=== PATIENT | female | born 1955 | race Caucasian/White ===

== ENCOUNTER → 2017-02-20 | Outpatient (CLI) | payer OTHER ==
--- NOTE | 2017-02-20 15:09 | REP ---
TRIPLE PHASE BONE SCAN KNEES: Following the intravenous administration of 21.8 mCi of technetium 99m MDP, the patient's knees are imaged in the flow phase in the anterior and posterior projections. There is symmetrical blood flow. Immediate blood pool and three hour delayed images are performed of the knees, in the anterior, posterior and both lateral projections. Photopenic area in the left knee joint is compatible with metallic prosthesis. There is no abnormal blood pooling or delayed activity on the left adjacent to the prosthesis. There is increased blood pooling and delayed activity in the right medial femoral condyle and tibial plateau compatible with arthritic change at that location. IMPRESSION: No compelling scintigraphic evidence of loosening or infection left knee prosthesis. Moderate arthritic uptake medial right knee joint. Signed by Bulmaro Mcdonald MD 02/20/2017 03:51 P
== END ==
LOC: M RAD 09:32
PROVIDERS: ATTEND Orthopaedic Surgery
DX: M17.12 Unilateral primary osteoarthritis, left knee (principal)
CPT/HCPCS: 78315; A9503

== ENCOUNTER 2017-06-04 07:30 | Day surgery (SDC) | payer OTHER ==
[~2017-06-04 07:30] MED LIST: LIDOCAINE 2% MDV 20 ML VIAL As Ordered; PROPOFOL 200 MG/20 ML VIAL As Ordered
[2017-06-04] MEDS: NS 1,000 ML IV (07:45)
[2017-06-04] MEDS ORDERED: CEFAZOLIN 100MG/ML SYRINGE 1GM(J0690 PER 500MG) As Ordered (07:57)
[2017-06-04] MEDS: CEFAZOLIN SOD 1 GM in APPROPRIATE DILUENT 1 EA IV (08:00)
== END 2017-06-04 09:25 | disposition home or self-care (01) ==
LOC: M OPP 07:30
DX: R19.5 Other fecal abnormalities (principal); K57.30 Diverticulosis of large intestine without perforation or abscess without bleeding; I10 Essential (primary) hypertension; E78.5 Hyperlipidemia, unspecified; E11.9 Type 2 diabetes mellitus without complications; E04.1 Nontoxic single thyroid nodule; M19.90 Unspecified osteoarthritis, unspecified site; F41.9 Anxiety disorder, unspecified; Z96.652 Presence of left artificial knee joint; Z88.8 Allergy status to other drugs, medicaments and biological substances; Z88.3 Allergy status to other anti-infective agents; Z79.899 Other long term (current) drug therapy; Z79.84 Long term (current) use of oral hypoglycemic drugs
CPT/HCPCS: 45378

== ENCOUNTER → 2021-02-22 | Outpatient (CLI) | payer MEDICARE ==
[~2021-02-22] MED LIST changes: +AMLO1TAB25 PO; +GLIM2TAB4 PO; -LIDOCAINE 2% MDV 20 ML VIAL As Ordered; +METF750T36 PO; -PROPOFOL 200 MG/20 ML VIAL As Ordered; +VESI10TA2 PO; +ZOLP10TA2 PO
--- NOTE | 2021-02-22 09:20 | REP ---
INDICATION: LT HIP PAIN ? OCCULT FX. COMPARISON: None. TECHNIQUE: 3 x 3 mm increments using helical technique and reconstructed in both sagittal and coronal planes. FINDINGS: There is a mildly impacted left femoral neck fracture. There is a slight hip joint effusion. There are mild degenerative changes. IMPRESSION: Mildly impacted left femoral neck fracture. <Electronically signed by Jassi Kelley > 02/22/21 [id number]
== END ==
LOC: M RAD 08:40
PROVIDERS: ATTEND Physician Assistant Surgical
DX: M25.552 Pain in left hip (principal); S72.002A Fracture of unspecified part of neck of left femur, initial encounter for closed fracture; M16.12 Unilateral primary osteoarthritis, left hip; Y92.9 Unspecified place or not applicable; Y93.9 Activity, unspecified; Y99.9 Unspecified external cause status

== ENCOUNTER → 2021-07-25 | Outpatient (CLI) | payer MEDICARE | LOC: M WHC 08:45 | PROVIDERS: ATTEND Internal Medicine Endocrinology, Diabetes & Metabolism | DX: M81.0 Age-related osteoporosis without current pathological fracture (principal); M85.851 Other specified disorders of bone density and structure, right thigh ==

== ENCOUNTER 2022-07-15 06:16 | Day surgery (SDC) | payer MEDICARE ==
[~2022-07-15] VITALS: Ht 154.9 cm; Wt 81.2 kg
[~2022-07-15 06:16] MED LIST changes: +ACET-1349 PO; +ALPR0.5T3 PO; +CITRTAB19 PO; +CYCLOPENTOLATE 1% OPHTH SOLN 2ML BTL OS SCH; +LEVO100T5 PO; +MAGN250T7 PO; +OFLOXACIN 0.3 % (OCUFLOX) OPTH SOL 5ML OS SCH; +OXYB10TA23 PO; +PHENYLEPHRINE 2.5% OPHTH SOL 2ML OS SCH; +PROPARACAINE 0.5% OPHTH SOL 15ML OS ONE; +TROPICAMIDE 1% OPHTH SOLN 15ML OS SCH; +VITA-243 PO; +VITA100093 PO
[2022-07-15] MEDS ORDERED: LIDOCAINE 1% SDV 5ML VIAL As Ordered ONE (06:38)
[2022-07-15] MEDS ORDERED: BSS IRR 500ML/OMIDRIA 4ML IRR BAG (OR ONLY) As Ordered ONE (06:41)
[2022-07-15] MEDS ORDERED: fentaNYL 100 MCG/2 ML INJECTION As Ordered ONE (07:53)
[2022-07-15] MEDS ORDERED: MIDAZOLAM INJ 2MG/2ML VIAL As Ordered ONE (07:53)
[2022-07-15] MEDS ORDERED: CEFUROXIME 1MG/0.1ML INTRACAMERAL INJ ICAM ONE (08:00)
[2022-07-15 08:11] VITALS: BP 133/75
== END 2022-07-15 08:11 | disposition home or self-care (01) ==
LOC: M SDC 06:16
PROVIDERS: ATTEND Ophthalmology
DX: H25.12 Age-related nuclear cataract, left eye (principal); I10 Essential (primary) hypertension; E78.5 Hyperlipidemia, unspecified; E11.9 Type 2 diabetes mellitus without complications; Z86.72 Personal history of thrombophlebitis; Z91.041 Radiographic dye allergy status; F41.9 Anxiety disorder, unspecified; Z90.49 Acquired absence of other specified parts of digestive tract; Z79.899 Other long term (current) drug therapy
CPT/HCPCS: 66984; J0697; J1097; J2250; J3010; V2632

== ENCOUNTER → 2023-01-09 | Outpatient (CLI) | payer MEDICARE ==
[~2023-01-09] MED LIST changes: -CYCLOPENTOLATE 1% OPHTH SOLN 2ML BTL OS SCH; -OFLOXACIN 0.3 % (OCUFLOX) OPTH SOL 5ML OS SCH; -PHENYLEPHRINE 2.5% OPHTH SOL 2ML OS SCH; -PROPARACAINE 0.5% OPHTH SOL 15ML OS ONE; -TROPICAMIDE 1% OPHTH SOLN 15ML OS SCH
== END ==
LOC: M PLAIMG 09:52
PROVIDERS: ATTEND Otolaryngology
DX: J32.0 Chronic maxillary sinusitis (principal)

== ENCOUNTER → 2023-09-23 | Outpatient (REF) | payer MEDICARE | LOC: M SFHCDERM 10:03 | PROVIDERS: ATTEND Physician Assistant | DX: R21 Rash and other nonspecific skin eruption (principal) ==

== ENCOUNTER → 2023-10-28 | Outpatient (REF) | payer MEDICARE | LOC: M SFHCDERM 07:04 | PROVIDERS: ATTEND Physician Assistant | DX: R76.8 Other specified abnormal immunological findings in serum (principal) ==

== ENCOUNTER → 2023-10-29 | Outpatient (CLI) | payer MEDICARE ==
[2023-10-29 14:14] LABS: BASO # 0.1 10^3/uL (0.0-0.2); BASO % 1.5 % (0.0-1.0); EOS # 0.1 10^3/uL (0.0-0.5); HEMATOCRIT 42.6 % (36.0-47.0); HEMOGLOBIN 14.2 g/dl (12.0-15.5); LYMPH # 1.3 10^3/uL (1.5-5.0); LYMPH % 31.9 % (24.0-44.0); MEAN CORPUSCULAR HEMOGLOBIN 31.3 pg (27.0-33.0); MEAN CORPUSCULAR HGB CONC 33.3 g/dl (32.0-36.5); MEAN CORPUSCULAR VOLUME 93.8 fl (80.0-96.0); MONO # 0.6 10^3/uL (0.0-0.8); MONO % 13.8 % (2.0-8.0); NEUTROPHILS % 49.5 % (36.0-66.0); PLATELET COUNT, AUTOMATED 241 10^3/uL (150-450); RED BLOOD COUNT 4.54 10^6/uL (4.00-5.40)
[2023-10-29 14:19] LABS: ERYTHROCYTE SEDIMENTATION RATE 14 mm/hr (0-30)
[2023-10-29 14:33] LABS: URIC ACID 5.5 MG/DL (3.1-7.8)
[2023-10-29 14:35] LABS: C REACTIVE PROTEIN QUANTITATIV < 0.40 MG/DL (<1.0)
[2023-10-29 14:36] LABS: ALKALINE PHOSPHATASE 46 U/L (46-116); ALT/SGPT 18 U/L (7.0-40); AST/SGOT 15 U/L (<34); BILIRUBIN,TOTAL 0.6 MG/DL (0.3-1.2); BLOOD UREA NITROGEN 18 MG/DL (9-23); CALCIUM LEVEL 9.2 MG/DL (8.3-10.6); CARBON DIOXIDE LEVEL 27 MMOL/L (20-31); CHLORIDE LEVEL 106 MMOL/L (98-107); CREATININE FOR GFR 0.64 MG/DL (0.55-1.30); GLOMERULAR FILTRATION RATE > 60.0 (>45); GLUCOSE, FASTING 172 MG/DL (74-106); POTASSIUM SERUM 4.1 MMOL/L (3.5-5.1); RHEUMATOID FACTOR QUANT 9.1 IU/ML (<14); SODIUM LEVEL 141 MMOL/L (136-145); TOTAL PROTEIN 6.6 G/DL (5.7-8.2)
== END ==
LOC: M PLALAB 10:27
PROVIDERS: ATTEND Physician Assistant
DX: R21 Rash and other nonspecific skin eruption (principal); R76.8 Other specified abnormal immunological findings in serum

== ENCOUNTER → 2024-01-05 | Outpatient (REF) | payer MEDICARE ==
[2024-01-05 13:49] LABS: APPEARANCE, URINE CLEAR (CLEAR); BACTERIA, URINE AUTO NEGATIVE (NEGATIVE); BILIRUBIN, URINE AUTO NEGATIVE (NEGATIVE); BLOOD, URINE BLOOD NEGATIVE (NEGATIVE); COLOR, URINE YELLOW (YELLOW); GLUCOSE, URINE (UA) AUTO 1+ mg/dL (NEGATIVE); KETONE, URINE AUTO NEGATIVE (NEGATIVE); LEUKOCYTE ESTERASE, URINE AUTO TRACE (NEGATIVE); MUCUS, URINE SMALL (NEGATIVE); NITRITE, URINE AUTO NEGATIVE (NEGATIVE); PROTEIN, URINE AUTO NEGATIVE (NEGATIVE); RBC, URINE AUTO 0 /HPF (0-3); SPECIFIC GRAVITY URINE AUTO 1.016 (1.002-1.035); SQUAMOUS EPITHELIAL CELL UR AU 1 /HPF (0-6); UROBILINOGEN, URINE AUTO 0.2 mg/dL (0.0-2.0); WBC, URINE AUTO 1 /HPF (0-3)
== END ==
LOC: M SMT 12:52
PROVIDERS: ATTEND Nurse Practitioner Family
DX: R39.15 Urgency of urination (principal)

== ENCOUNTER → 2024-01-06 | Outpatient (CLI) | payer MEDICARE ==
[2024-01-08 10:37] LABS: ANA PATTERN Cytoplasmic (NEGATIVE); ANA SCREEN, IFA POSITIVE (NEGATIVE)
== END ==
LOC: M PLALAB 09:14
PROVIDERS: ATTEND Physician Assistant
DX: R21 Rash and other nonspecific skin eruption (principal)

== ENCOUNTER → 2024-07-15 | Outpatient (CLI) | payer MEDICARE | LOC: M PLAIMG 12:09 | PROVIDERS: ATTEND Internal Medicine | DX: M19.041 Primary osteoarthritis, right hand (principal); M19.042 Primary osteoarthritis, left hand; M19.071 Primary osteoarthritis, right ankle and foot; M19.072 Primary osteoarthritis, left ankle and foot; M77.32 Calcaneal spur, left foot; M25.48 Effusion, other site ==

== ENCOUNTER → 2024-07-15 | Outpatient (REF) | payer MEDICARE ==
[2024-07-15 16:34] LABS: TOTAL PROTEIN,RANDOM URINE 8.6 MG/DL (0.0-14.0)
[2024-07-15 16:42] LABS: BASO # 0.1 10^3/uL (0.0-0.2); BASO % 1.3 % (0.0-1.0); EOS # 0.1 10^3/uL (0.0-0.5); EOS % 2.3 % (0.0-3.0); HEMATOCRIT 46.7 % (36.0-47.0); HEMOGLOBIN 15.6 g/dl (12.0-15.5); LYMPH # 1.5 10^3/uL (1.5-5.0); MEAN CORPUSCULAR HEMOGLOBIN 30.5 pg (27.0-33.0); MEAN CORPUSCULAR HGB CONC 33.4 g/dl (32.0-36.5); MEAN CORPUSCULAR VOLUME 91.4 fl (80.0-96.0); MONO # 0.4 10^3/uL (0.0-0.8); MONO % 8.8 % (2.0-8.0); NEUTROPHILS # 2.7 10^3/uL (1.5-8.5); NEUTROPHILS % 56.4 % (36.0-66.0); PLATELET COUNT, AUTOMATED 263 10^3/uL (150-450); RED BLOOD COUNT 5.11 10^6/uL (4.00-5.40); WHITE BLOOD COUNT 4.8 10^3/uL (4.0-10.0)
[2024-07-15 16:51] LABS: APPEARANCE, URINE CLEAR (CLEAR); BACTERIA, URINE AUTO NEGATIVE (NEGATIVE); BILIRUBIN, URINE AUTO NEGATIVE (NEGATIVE); BLOOD, URINE BLOOD NEGATIVE (NEGATIVE); COLOR, URINE YELLOW (YELLOW); GLUCOSE, URINE (UA) AUTO NEGATIVE (NEGATIVE); KETONE, URINE AUTO NEGATIVE (NEGATIVE); LEUKOCYTE ESTERASE, URINE AUTO 1+ (NEGATIVE); MUCUS, URINE SMALL (NEGATIVE); NITRITE, URINE AUTO NEGATIVE (NEGATIVE); PROTEIN, URINE AUTO NEGATIVE (NEGATIVE); RBC, URINE AUTO 0 /HPF (0-3); SPECIFIC GRAVITY URINE AUTO 1.012 (1.002-1.035); SQUAMOUS EPITHELIAL CELL UR AU 0 /HPF (0-6); TRANSITIONAL EPITHELIAL AUTO <1 /HPF; UROBILINOGEN, URINE AUTO 0.2 mg/dL (0.0-2.0); WBC, URINE AUTO 3 /HPF (0-3)
[2024-07-15 16:52] LABS: C REACTIVE PROTEIN QUANTITATIV < 0.50 MG/DL (<1.0)
[2024-07-15 16:53] LABS: ALBUMIN 4.5 G/DL (3.2-5.2); ALKALINE PHOSPHATASE 47 U/L (35-104); ALT/SGPT 17 U/L (7.0-40); AST/SGOT 15 U/L (<34); BILIRUBIN,DIRECT 0.3 MG/DL (<0.4); BILIRUBIN,TOTAL 0.8 MG/DL (0.3-1.2); BLOOD UREA NITROGEN 14 MG/DL (9-23); CALCIUM LEVEL 9.6 MG/DL (8.3-10.6); CARBON DIOXIDE LEVEL 26 MMOL/L (20-31); CHLORIDE LEVEL 106 MMOL/L (98-107); CREATININE FOR GFR 0.62 MG/DL (0.55-1.30); ERYTHROCYTE SEDIMENTATION RATE 34 mm/hr (0-30); GLOMERULAR FILTRATION RATE > 90.0 (>39); GLUCOSE, FASTING 98 MG/DL (74-106); POTASSIUM SERUM 3.5 MMOL/L (3.5-5.1); SODIUM LEVEL 145 MMOL/L (136-145); TOTAL PROTEIN 7.7 G/DL (5.7-8.2)
[2024-07-15 16:55] LABS: TOTAL 25(OH) VITAMIN D 59.1 NG/ML (20.0-100.0)
[2024-07-15 16:56] LABS: COMPLEMENT C3 172.8 MG/DL (90.0-170.0)
[2024-07-15 16:57] LABS: COMPLEMENT C4 24.4 MG/DL (12-36)
== END ==
LOC: M SFHCRHEU 11:23
PROVIDERS: ATTEND Internal Medicine
DX: R76.8 Other specified abnormal immunological findings in serum (principal); M25.48 Effusion, other site; R53.83 Other fatigue

== ENCOUNTER → 2024-11-01 | Outpatient (REF) | payer MEDICARE | LOC: M SFHCRHEU 12:12 | PROVIDERS: ATTEND Internal Medicine | DX: R76.8 Other specified abnormal immunological findings in serum (principal) ==

== ENCOUNTER → 2024-11-25 | Outpatient (CLI) | payer MEDICARE | LOC: M PLARAD 10:27 | PROVIDERS: ATTEND Internal Medicine | DX: M19.042 Primary osteoarthritis, left hand (principal); M25.742 Osteophyte, left hand; M15.4 Erosive (osteo)arthritis ==

== ENCOUNTER → 2025-02-03 | Outpatient (REF) | payer MEDICARE ==
[~2025-02-03] MED LIST changes: +ZOLP10TA11 PO; -ZOLP10TA2 PO
[2025-02-03 19:39] LABS: BASO # 0.1 10^3/uL (0.0-0.2); BASO % 1.6 % (0.0-1.0); EOS # 0.1 10^3/uL (0.0-0.5); EOS % 2.7 % (0.0-3.0); LYMPH # 1.5 10^3/uL (1.5-5.0); LYMPH % 33.9 % (24.0-44.0); MONO # 0.4 10^3/uL (0.0-0.8); MONO % 10.0 % (2.0-8.0); NEUTROPHILS # 2.3 10^3/uL (1.5-8.5); NEUTROPHILS % 51.8 % (36.0-66.0); PLATELET COUNT, AUTOMATED 263 10^3/uL (150-450)
[2025-02-03 20:08] LABS: ALT/SGPT 12 U/L (7.0-40); AST/SGOT 17 U/L (<34); CALCIUM LEVEL 9.3 MG/DL (8.3-10.6); CARBON DIOXIDE LEVEL 26 MMOL/L (20-31); CHLORIDE LEVEL 106 MMOL/L (98-107); CREATININE FOR GFR 0.63 MG/DL (0.55-1.30); GLOMERULAR FILTRATION RATE > 90.0 (>39); POTASSIUM SERUM 4.0 MMOL/L (3.5-5.1); SODIUM LEVEL 143 MMOL/L (136-145)
[2025-02-03 20:24] LABS: HEPATITIS B SURFACE ANTIBODY NEGATIVE (POSITIVE)
[2025-02-03 20:56] LABS: HEPATITIS C VIRUS ABY INDEX < 0.02 INDEX (<0.8)
== END ==
LOC: M SFHCRHEU 15:52
PROVIDERS: ATTEND Internal Medicine
DX: L40.50 Arthropathic psoriasis, unspecified (principal); Z11.59 Encounter for screening for other viral diseases